=== PATIENT | female | born 1995 | race Caucasian/White ===

== ENCOUNTER 2021-02-17 12:56 | Emergency (ER) | payer OTHER, SELFPAY ==
--- NOTE | 2021-02-17 13:09 | ED.FEMALEGU ---
HPI - Female Genitourinary General Chief complaint: Urogenital-Female Stated complaint: UTI complaint Time Seen by Provider: 02/17/21 13:10 Source: patient, RN notes reviewed and old records reviewed Mode of arrival: ambulatory Limitations: no limitations History of Present Illness HPI Narrative: 28-year-old female presents to the [facility] with complaints of I think I have a UTI. Patient reports burning with urination and external irritation vaginally. Patient reports that she tried applying Monistat but had some burning with it. Patient reports that for the first time in 2 years she had aggressive sex and use coconut oil to help. Has a new partner. Has a history of UTIs, yeast infections post sexual activity. Patient denies any other symptoms. No fevers. No abdominal pain. Denies chest pain or shortness of breath. MD elicited complaint: UTI Related Data Home Medications Medication Instructions Recorded Confirmed norgestimate-ethinyl estradiol 1 tablet PO DAILY 02/17/21 02/17/21 [Tri-Previfem (28)] Allergies Allergy/AdvReac Type Severity Reaction Status Date / Time red dye Allergy Mild hives Verified 10/26/20 07:29 citalopram Allergy Unknown Hives Verified 10/26/20 07:29 Review of Systems Review of Systems: All systems reviewed & are unremarkable except as noted in HPI and below Constitutional: Constitutional: Reports no additional constitutional complaints Eyes: Eyes: Reports no additional eye complaints ENT: Reports system reviewed and no additional complaints, except as documented Cardiovascular: Cardiovascular: Reports no additional cardiovascular complaints and Denies chest pain Respiratory: Respiratory: Reports no additional respiratory complaints, Denies cough and Denies dyspnea Gastrointestinal: Gastrointestinal: Reports no additional gastrointestinal complaints, Denies abdominal pain, Denies nausea and Denies vomiting Genitourinary: Genitourinary: Reports as per HPI, Reports nocturia, Denies genital lesions, Reports dysuria, Reports pelvic pain, Denies urinary incontinence and Reports vaginal discharge Musculoskeletal: Musculoskeletal: Reports no additional musculoskeletal complaints Integumentary/Breasts: Skin/Breast: Reports system reviewed and no additional complaints, except as docu Neurologic: Reports system reviewed and no additional complaints, except as documented Psychiatric: Psychiatric: Reports no additional psychiatric complaints Allergic/Immunologic: Allergic/Immunologic: Reports no additional allergic/immunologic complaints PMFSH Past Medical History Medical History Acute maxillary sinusitis Body rash Hyperlipidemia Pain in right foot Palpitations Sore throat, chronic Stress Surgical History Surgical History Hx of tonsillectomy Family History Family History Father Hypertension Family history of elevated blood lipids Mother Family history of elevated blood lipids Social History Social History Smoking status: Never smoker Second hand tobacco smoke exposure: No Alcohol intake: current Drinks per week: 1 Comments At the time of my signature, I reviewed and agree with the nursing past medical, surgical, social, and family history. There is no relevant family history pertinent to the patient complaint. Exam Const: General: healthy appearing, no acute distress and alert Nutritional Appearance: well nourished Orientation/consciousness: patient oriented x3 Limitations: no limitations HENMT: Head: normal to inspection Eyes: Conjunctivae: conjunctivae normal Pupils: Equal, round and reactive pupils present Neck: Neck: normal visual inspection, no lymphadenopathy and no meningeal signs Chest: Chest palpation & inspection: normal inspection of the ches
[2021-02-17 13:10] VITALS: BP 128/74; PULSE 81; RESP 18; TEMP 36.8; O2SAT 100
== END 2021-02-17 14:04 | disposition home or self-care (01) ==
PROVIDERS: Emergency Provider Nurse Practitioner; PCP Internal Medicine
DX: N76.0 Acute vaginitis (principal); B37.3 Candidiasis of vulva and vagina; N39.0 Urinary tract infection, site not specified; E78.5 Hyperlipidemia, unspecified
CPT/HCPCS: 81003; 87070; 87086; 87491; 87591; 87661; 99214; G0463

== ENCOUNTER 2022-07-20 17:38 | Emergency (ER) | payer OTHER, SELFPAY ==
--- NOTE | 2022-07-20 17:49 | ED.GENADULT ---
HPI - General Adult General Chief complaint: Animal Bite Stated complaint: dog bite Time Seen by Provider: 07/20/22 17:49 Source: patient Mode of arrival: ambulatory Limitations: no limitations History of Present Illness HPI narrative: 26-year-old female patient presents to the [facility] with complaints of a dog bite to the left index finger. Patient states she has the old dog at home that was having wheezing issues the night before and she went to go give him his medicine in his mouth and he accidentally bit her left index finger. Patient states her last tetanus shot was in 2015. Patient states she did try and wash the finger and area with soap water but noticed that it appeared that it might be getting infected. Denies any pain to the area at this time. Denies fevers, body aches or chills. Related Data Home Medications Medication Instructions Recorded Confirmed norgestimate-ethinyl estradiol 1 tablet PO DAILY 02/17/21 07/20/22 0.18 mg/0.215mg/0.25mg-35 mcg(28)tablet (Tri-Previfem (28)) Allergies Allergy/AdvReac Type Severity Reaction Status Date / Time red dye Allergy Mild hives Verified 07/20/22 18:06 citalopram Allergy Unknown Hives Verified 07/20/22 18:06 Review of Systems Review of Systems: CONSTITUTIONAL: Denies fever, chills, or sweats. EYES: Denies visual changes, redness, or discharge. ENT: Denies rhinorrhea, congestion, sore throat, or otalgia. CARDIOVASCULAR: Denies chest pain, palpitations, or edema. RESPIRATORY: Denies cough or dyspnea. GASTROINTESTINAL: Denies abdominal pain, nausea, vomiting, or diarrhea. GENITOURINARY: Denies dysuria or hematuria. SKIN: Denies rash or itching. Positive wound to left index finger MUSCULOSKELETAL: Denies back pain, joint pain, or myalgia. NEUROLOGIC: Denies headache, numbness, or weakness. PSYCHIATRIC: Denies anxiety or depression. [facility] Past Medical History Medical History Acute maxillary sinusitis Body rash Hyperlipidemia Pain in right foot Palpitations Sore throat, chronic Stress Surgical History Surgical History Hx of tonsillectomy Family History Family History Father Hypertension Family history of elevated blood lipids Mother Family history of elevated blood lipids Breast cancer Social History Social History Smoking status: Never smoker Second hand tobacco smoke exposure: No Alcohol intake: current Drinks per week: 1 Substance use: never Comments At the time of my signature I agree with nursing past medical history, surgical, social, and family history. There is no relevant family history pertinent to the presenting complaint. Exam Narrative: GENERAL: Well-appearing, well-nourished, and in no acute distress. HEAD: Normocephalic, atraumatic. EYES: PERRLA and EOMI. ENT: Nares clear, no rhinorrhea or epistaxis. Mucous membranes moist. NECK: Supple. No lymphadenopathy CHEST: Clear to auscultation. No respiratory distress. HEART: Regular rate and rhythm. No murmur heard. Normal peripheral pulses. ABDOMEN: Soft, nontender, nondistended, normal active bowel sounds. EXTREMITIES: Normal range of motion. No edema. SKIN: Warm, dry, no rash. patient has some broken skin to the area of the cuticle on the left index finger. There is some surrounding erythema and what appears to be some green pus underneath the skin. There is an open wound area that appears to be draining. The entire wound measuring about 0.5 cm NEURO: No focal deficits. Alert and oriented x3. Course Course Level of Care: Express Care Visit Vital Signs Vital signs: Vital Signs Temperature 36.2 C L 07/20/22 18:08 Pulse Rate 107 H 07/20/22 18:08 Respiratory Rate 18 07/20/22 18:08 Blood Pressure 129/75 07/20/22 18:08 Pulse Oxim
[2022-07-20 18:08] VITALS: BP 129/75; PULSE 107; RESP 18; TEMP 36.2; O2SAT 100
[2022-07-20] MEDS: TETANUS,DIPHTHERIA,AC PERTUSSIS ADULT (0.5 ML) BOOSTRIX IM (18:32)
== END 2022-07-20 18:53 | disposition home or self-care (01) ==
PROVIDERS: Emergency Provider Nurse Practitioner Family; PCP Internal Medicine
DX: S61.251A Open bite of left index finger without damage to nail, initial encounter (principal); L08.9 Local infection of the skin and subcutaneous tissue, unspecified; Z23 Encounter for immunization; W55.21XA Bitten by cow, initial encounter
CPT/HCPCS: 90471; 90715; 99213; G0463

== ENCOUNTER 2025-01-22 18:12 | Emergency (ER) | payer OTHER, SELFPAY ==
--- OUTSIDE RECORDS SUMMARY | 2017-05-20 08:58 | XMS_ITS | Continuity of Care Document ---
Author Organization [facility] Address [address] [place] [address] Phone Care Team Providers Care Ethnic Origins Teacher Name Role Phone Unavailable Unavailable Unavailable Allergies, Adverse Reactions, Alerts Substance Reaction Status Criticality red dye Active No Information Medications Medication Instructions Dosage Effective Dates (start - stop) Status Comments ondansetron 4 mg disintegrating tablet take 1 tablet by oral route every [address] on top of the tongue where they will dissolve, then swallow - Active benzonatate 200 mg capsule take 1 capsule by oral route 3 times every day as needed for cough 200 MG - Active TriNessa (28) 0.18 mg(7)/0.215 mg(7)/0.25 mg(7)-35 mcg tablet take 1 tablet by oral route every day - Active ondansetron HCl 4 mg tablet take 1 tablet by oral route 2 times every day 4 MG - No Longer Active Procedures Procedure Date Ondansetron (Zofran) Oral 4mg 8 Flu Rapid Immunoas; Flu Rapid Immunoas; Offic/outpt E&m Estab Mod-hi 2 18 Service(s) provided in the office during regularly Services provided in an urgent care cent er Offic/outpt E&m Estab Mod-hi 2 17 Services provided in an urgent care cent er Flu Rapid Immunoas; Flu Rapid Immunoas; Ua Dip Stik/tablet; Wo Micro A 16 Handl/convey Specmn-offic To L 16 Offic/outpt E&m Estab Mod-al 2 16 Service(s) provided in the office during regularly Services provided in an urgent care cent er Agt-immunassay Dir Obs; Strep 6 Agt-immunassay Dir Obs; Strep 6 Offic/outpt E&m New Mod Sever 6 Services provided in an urgent care [facility] er Advance Directives Directive Yes / No Effective Date File Name No Information Encounters Encounter Description Practice Location Reason(s) For Visit Diagnoses Date Provider Providers Copied on Encounter [facility], [address], [place], [place], [id number], [place] tel:[phone] [facility] [place] No Information 8 No Information Offic/outpt E&m Estab [facility] 2 [facility], [address], [place], [place], [id number], tel:[phone] [facility] [place] diarrhea (chief complaint)n chay congestion (chief complaint) Vomiting and diarrheaDiarr hea, unspecifiedDi arrhea, unspecified 8 No Information Offic/outpt E&m [facility] 2 [facility], [address], [place], [place], [id number], [place] tel:[phone] [facility] [place] cough (chief complaint)f ever (chief complaint)s inus symptoms (chief complaint)v omiting (chief complaint) Acute upper respiratory infectionAcut e sinusitis, unspecifiedVi ral syndrome 7 No Information Offic/outpt E&m Estab [facility], [address], [place], [place], [id number], [place] tel:[phone] [facility] [place] vaginal itching (chief complaint)s ore throat (chief complaint) Acute pharyngitis, unspecified etiologyDysur iaAcute vaginitisUrin brittany tract infection, site unspecified 6 No Information Offic/outpt E&m [facility], [address], [place], [place], [id number], [place] tel:[phone] [facility] [place] sore throat (chief complaint) Acute pharyngitis, unspecified No Information Family History Family Member Type Diagnosis Age At Onset No Information Payers Payer name Insurance type Covered constitution party ID Guy cervanteszaheer(s) [employer] P[place] [id number] Social History Type Description Quantity Date Captured Comments Sex Female Smoking Status No Information Chief Complaint And Reason For Visit No Information Reason For Referral Reason For Referral No Information History Of Present Illness Encounter Date Complaint History Of Prese nt Illness No Information Functional Status Date Functional Assessmen t No Information Instructions Date Instruction Additional Infor mation No Information Assessments Type Assessment Date No Information Patient Care Teams Name Effective Dates (start - stop) Status Members No Information
--- OUTSIDE RECORDS SUMMARY | 2017-05-20 08:58 | XMS_ITS | Continuity of Care Document ---
Author Organization [facility] Address [address] [place] [address] Phone Care Team Providers Care Corporate Communications Specialist Name Role Phone Unavailable Unavailable Unavailable Allergies, [...] Specmn-offic To L 16 Offic/outpt E&m Estab Mod-nm 2 16 Service(s) provided in the office during regularly Services provided in an urgent care cent er Agt-immunassay Dir Obs; Strep 6 Agt-immunassay Dir Obs; Strep 6 Offic/outpt E&m New Mod Sever 6 Services provided in an urgent care [facility] er Advance Directives Directive Yes / No Effective Date File Name No Information Encounters Encounter Description Practice Location Reason(s) For Visit Diagnoses Date Provider Providers Copied on Encounter [facility], [address], [place], [place], [id number], [place] tel:[phone] [facility] [place] No Information 8 No Information Offic/outpt E&m Estab [facility] 2 [facility], [address], [place], [place], [id number], tel:[phone] [facility] [place] diarrhea (chief complaint)n chay congestion (chief complaint) Vomiting and diarrheaDiarr hea, unspecifiedDi arrhea, unspecified 8 No Information Offic/outpt E&m [facility] 2 [facility], [address], [place], [place], [id number], [place] tel:[phone] [facility] [place] cough (chief complaint)f ever (chief complaint)s inus symptoms (chief complaint)v omiting (chief complaint) Acute upper respiratory infectionAcut e sinusitis, unspecifiedVi ral syndrome 7 No Information Offic/outpt E&m Estab [facility] 2 [facility], [address], [place], [place], [id number], [place] tel:[phone] [facility] [place] vaginal itching (chief complaint)s ore throat (chief complaint) Acute pharyngitis, unspecified etiologyDysur iaAcute vaginitisUrin brittany tract infection, site unspecified 6 No Information Offic/outpt E&m [facility], [address], [place], [place], [id number], [place] tel:[phone] [facility] [place] sore throat (chief complaint) Acute pharyngitis, unspecified No Information Family History Family Member Type Diagnosis Age At Onset No Information Payers Payer name Insurance type Covered constitution party ID Guy cervanteszaheer(s) [employer] PVD CI [id number] Social History Type Description Quantity Date Captured [...]
--- NOTE | 2025-01-22 18:14 | ED.FEMALEGU ---
HPI - Female Genitourinary General Chief complaint: Urogenital-Female Stated complaint: uti Time Seen by Provider: 01/22/25 18:13 Source: patient Mode of arrival: ambulatory Limitations: no limitations History of Present Illness HPI Narrative: Patient is a 29-year-old female who presents with urination burning with urination that started yesterday morning. Denies any urgency, frequency, low back pain, fever, chills, nausea, vomiting, diarrhea. Has no concern for STD. Has had UTI in the past. MD elicited complaint: dysuria Related Data Home Medications ?Medication ?Instructions ?Recorded ?Confirmed ?Last Taken ?Type multivitamin 1 tablet PO DAILY 04/24/23 01/22/25 Unknown History Allergies Allergy/AdvReac Type Severity Reaction Status Date / Time citalopram Allergy Mild Hives Verified 01/22/25 18:15 red dye Allergy Mild hives Verified 01/22/25 18:15 Review of Systems Review of Systems: All systems reviewed & are unremarkable except as noted in HPI and below Constitutional: Constitutional: Denies chills, Denies fever(s), Denies headache(s), Denies malaise and Denies weakness Eyes: Eyes: Denies change in vision, Denies eye discharge and Denies irritation ENT: Denies otalgia, Denies headache(s), Denies nasal congestion, Denies nasal discharge, Denies sinus pain and Denies sore throat Cardiovascular: Cardiovascular: Denies chest pain, Denies edema, Denies palpitations and Denies dyspnea Respiratory: Respiratory: Denies cough and Denies dyspnea Gastrointestinal: Gastrointestinal: Denies abdominal pain, Denies diarrhea, Denies nausea and Denies vomiting Genitourinary: Genitourinary: Denies hematuria, Denies nocturia, Reports dysuria, Denies flank pain and Denies urinary urgency Musculoskeletal: Musculoskeletal: Denies back pain and Denies numbness Integumentary/Breasts: Skin/Breast: Denies pruritus and Denies rash Neurologic: Denies headache(s), Denies numbness and Denies weakness Psychiatric: Psychiatric: Reports no additional psychiatric complaints Endocrine: Endocrine: Denies palpitations PMFSH Past Medical History Medical History Hyperlipidemia Acute maxillary sinusitis Sore throat, chronic Pain in right foot Body rash Stress Palpitations Surgical History Surgical History Hx of tonsillectomy Family History Family History Father Hypertension Family history of elevated blood lipids Mother Family history of elevated blood lipids Breast cancer, Onset Age: 61 BRCA negative Social History Social History Smoking status: Never smoker Second hand tobacco smoke exposure: No Alcohol intake: current Drinks per week: 1 Substance use: never Spiritual care concerns: No Comments At time of signature, agree with nursing past medical, surgical, social and family history. There is no relevant family history pertinent to the presenting complaint. Exam Const: General: cooperative, healthy appearing, comfortable, no acute distress and well nourished Nutritional Appearance: well nourished Orientation/consciousness: patient oriented x3 HENMT: Head: normocephalic and atraumatic Ears: external ears normal Face/Nose/Sinus: Normal external nose present, Normal nares present and normal facial exam Face and sinus: normal facial exam Eyes: General: appearance normal, both eyes and all related structures Pupils: Equal, round and reactive pupils present EOM: EOMs intact bilaterally Neck: Neck: normal visual inspection, full ROM and supple Chest: Chest palpation & inspection: normal inspection of the chest Resp: Effort & Inspection: normal respiratory effort and able to speak in complete sentences Cardio: Rate: regular rate Rhythm: regular rhythm GI: Inspection: normal to inspection GI Palp: No abdominal tenderness and Yes Soft to palpation : General: Yes no CVA tenderness Back/Spine/Pelvis: Back: no CVA tenderness Skin: General skin exam: normal color and no rashes or lesions noted Neuro: General: patient oriented x3 and moves all extremities Cranial nerves: Yes Equal, round and reactive pupils present Extrem: General: normal to inspection and full ROM Psych: Appearance: grossly normal and well kempt Course Course Emergency Course: Patient is aware of diagnosis, understands and agrees to treatment plan. Anticipatory guidance given. Patient agrees to follow-up as directed and is aware of reasons to seek care at the emergency department. Portions of this record may have been created with voice recognition software Level of Care: Express Care Visit Vital Signs Vital signs: Vital Signs Temperature 36.3 C L 10/04/25 18:22 Pulse Rate 74 01/22/25 18:22 Respiratory Rate 18 01/22/25 18:22 Blood Pressure 122/70 01/22/25 18:22 Pulse Oximetry 100 01/22/25 18:22 Oxygen Delivery Room Air 01/22/25 18:22 Temperature 36.3 C L 01/22/25 18:22 Pulse Rate 74 01/22/25 18:22 Respiratory Rate 18 01/22/25 18:22 Blood Pressure 122/70 01/22/25 18:22 Pulse Oximetry 100 01/22/25 18:22 Oxygen Delivery Room Air 01/22/25 18:22 Reviewed MDM - Female Genitourinary MDM Narrative Medical decision making narrative: Exam findings and UA show probable UTI; patient is non-toxic appearing and is in no distress. No CMT, adnexal tenderness, or evidence of pelvic etiology. Patient is appropriate for outpatient treatment and follow-up. Differential Diagnosis Differential diagnosis: Likely urinary tract infection, bacterial vaginosis, trichomoniasis, cervicitis, vaginitis and cystitis Medical Records Attestation: I reviewed the patient's medical records. Lab Data Attestation: I reviewed the patient's lab results. Labs: Lab Results 01/22/25 Range/Units 18:27 POC Urine Color Light/pale POC Urine Clarity Clear POC Urine pH 7.0 POC Ur Specif [place] 1.005 POC Urine Protein Negative (Negative) POC Ur Glucose (UA) Negative (Negative) POC Urine Ketones Negative (Negative) POC Urine Blood Trace (Negative) POC Urine Nitrite Negative (Negative) POC Urine Bilirubin Negative (Negative) POC Urine Urobilinogen 0.2 POC U Leukocyte Esteras Negative (Negative) Discharge Plan Discharge Clinical Impression: UTI (urinary tract infection) Qualifiers: Urinary tract infection type: acute cystitis Hematuria presence: without hematuria Qualified Code(s): N30.00 - Acute cystitis without hematuria Patient Disposition: Home Condition: Stable Instructions: Urinary Tract Infection in Women (ED) Additional Instructions: We will send a urine culture to the lab, based on your symptoms and urine dip we will start treatment today. If culture comes back and bacteria is not susceptible to antibiotic, your prescription may change. Your symptoms should improve within a day of starting antibiotics, but you should finish all the antibiotic pills you get. Otherwise your infection might come back Continue with increased water intake. Take Tylenol or ibuprofen as needed for pain or fever. Follow-up with primary care provider for urine recheck or see ER visit if condition worsens with high fever, nausea, vomiting, severe back pain Patient Language: Amharic Prescriptions: New sulfamethoxazole-trimethoprim 800-160 mg tablet 1 tablet PO Q12H 5 Days Qty: 10 0RF No Action multivitamin Tablet 1 tablet PO DAILY dextroamphetamine-amphetamine [Adderall] 20 mg tablet 20 mg PO BID Qty: 60 0RF Rx Instructions: Fill on/after 10/06. norgestimate-ethinyl estradiol [Tri-Sprintec (28)] 0.18/0.215/0.25 mg-35 mcg (28) tablet 1 tablet PO DAILY Qty: 28 0RF Follow-up/Referrals: Marie Dubois APRN [Primary Care Provider, Internal Medicine] - 3 Days Time of Disposition: 18:34
--- OUTSIDE RECORDS SUMMARY | 2025-01-22 18:15 | XMS_ITS | Clinical Summary ---
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
--- OUTSIDE RECORDS SUMMARY | 2025-01-22 18:15 | XMS_ITS | Data Portability ---
Author Organization [facility] Address [address] [place] [address] [place] [address] Care Team Providers Care Quality Control Tester Name Role Phone OSMANY FOY Primary Care Provider [phone] Assessment Encounter Date Assessment Date Assessment LastModified by Organization Details LastModified Time 01/31/2022 01/31/2022 Annual gynecological exam performed. Patient will come back in a year unless there are new symptoms. Not available 01/31/2022 17:06:08 02/04/2023 02/04/2023 Annual gynecological exam performed. Patient will come back in a year unless there are new symptoms. [email or web address] Not available 02/04/2023 12:43:38 02/09/2024 02/09/2024 Annual gynecological exam performed. Patient will come back in a year unless there are new symptoms. [email or web address] Not available 02/09/2024 15:33:40 Plan of Treatment Reminders Order Date Submit Date Provider Last Modified By Organization Details Last Modified Time Details Appointments [facility] 2024 11:45A M PATO GUAJARDO NP Not available Not available Not available Lab urinalysi s, dipstick 2024 025 [email or web address] [address], [address], [place], [address], 07/23/2024 17:32:07 pap, IG + reflex HPV if ASC-U - if positive HPV run subtyping 16,18/45 2023 024 [facility] (Lab), [address] [place], [address], 02/14/2024 21:45:45 Referral None recorded. Procedures None recorded. Surgeries None recorded. Imaging None recorded. Medication Orders Macrobid 100 mg capsule 2024 025 [facility] #[id number], [address], [place], [place], [id number], 07/23/2024 17:32:12 Tri-Sprin lizbeth (28) 0.18 mg(7)/0.2 15 mg(7)/0.2 5 mg(7)-0.0 35 mg tablet 2023 [facility] #[id number], [address], [place], [id number], 02/09/2024 15:38:37 fluconazo le 150 mg tablet 2023 024 [facility] #29086, [address], [place], [id number], 05/07/2023 12:51:35 nystatin- triamcino lone 100,000 unit/gram -0.1 % topical ointment 2023 024 [facility] #[id number], [address], [place], [place], [id number], 02/09/2024 14:54:24 Tri-Sprin lizbeth (28) 0.18 mg(7)/0.2 15 mg(7)/0.2 5 mg(7)-0.0 35 mg tablet 2022 023 [facility] #41479, [address], [place], [id number], 02/04/2023 12:50:43 Tri-Sprin lizbeth (28) 0.18 mg(7)/0.2 15 mg(7)/0.2 5 mg(7)-0.0 35 mg tablet 2021 022 [facility][id number], [address], [place], [place], [id number], 02/17/2022 19:58:51 Patient TargetsNo targets recorded. Patient InstructionsNo instructions recorded. Reason for Referral None Reported. Results Created Date Observation Date Name Description Value Unit Range Abnormal Flag Note LastModifiedBy Organization Detail LastModifiedTime 02/01/20 22 01/31/2022 IMAGE GUIDE D PAP, REFLE X HPV IF ASCUS ONLY image guided Pap, reflex HPV ASCUS only SEE RESULT S BELOW CASE REPOR T: Cytol ogy Gynec ologi tamika Repor t Case: [id number] Autho j luis mariee Provi marifer: Dm Bazan Colle cted: 01/31 1725 AS400 CONSULTANT Order ing Locat ion: [place] Patho log[facility] Recei garry: 02/01 0904 First Scree n: Anne-Marie Dickinson Rescr een: Suri collins, Jennifer sharma, CT Speci men: Scree moi Pap - Image d, Cervi x STATE MENT OF ADEQU ACY: Satis facto ry for evalu ation Trans forma tion zone compo nent prese nt FINAL DIAGN OSIS: Negat brianne for Intra epith elial Lesio n or Henry escamilla (NIL) . Elect gladis cook d by Jennifer Minaya, CT on 02/06 at 9:46 PM ----- ----- ----- ----- ----- ----- ----- ----- ----- ----- ----- ----- ----- ----- ----- ----- ----- ---- COMME NT: Note: This speci men was revie wed by a Cytot echno logis t and/o r Patho logis t (as indic ated in this repor t) after evalu ation using the Thinp rep Imagi ng Syste m. CLINI TAMIKA INFOR MATIO N: Menst rual Statu s: LMP (if appli cable ): Clini tamika Histo ry/Pr eviou s Pap: Type of Neopl pricilla (if appli cable ): Signi fican t Clini tamika Findi ngs: Other Histo ry: Hormo angi (if appli cable ): PAP EDUCA ELOY L NOTE: The Pap Test is a scree moi test with an inher ent false negat brianne rate. Liqui d-bas ed sampl ing may decre ase, but will not elimi mahamed, false negat brianne resul ts. A negat brianne resul t does not precl ude the prese nce and/o r devel opmen t of disea se, since the prese nce of abnor mal cells in the sampl e depen ds on the locat ion of the lesio n and sampl ing techn ique. Vladimir nued regul ar scree moi is the best metho d of cance r preve ntion . If repor hzael cytol ogic findi ng do not corre late with physi tamika and/o r histo rical findi ngs, furth er inves tigat ion is recom glenda d, as clini kaykay santana nted. Not Available [facility] [address] [place], [address], 02/06/2022 22:49:02 07/24/19 25 07/23/2024 CULTU RE: URINE result report SEE RESULT S BELOW abnormal Test: Cultu re: Urine Speci men Sourc e: Urine - Clean Catch Speci men Type: Urine Speci men Date: 025 1630 Resul t Date: 0747 Resul t Statu s: Final resul t Abnor mal: Yes Resul ting Lab: [facility] [address] [facility] [facility] [address] Tel: CULTU RE ----- ----- ----- --- 50,00 0-75, 000 CFU/m l Esche deborah a coli (Abno rmal) SUSCE PTIBI LITY ----- ----- ----- --- Esche deborah a coli METHO D ARNIE ----- ----- ----- ----- ----- ---- ----- ----- ----- ----- ----- AMPIC ILLIN <=8 ug/mL Susce ptibl e AMPIC ILLIN /SULB ACTAM <=4 ug/mL Susce ptibl e AZTRE ONAM <=4 ug/mL Susce ptibl e CEFAZ YANA <=2 ug/mL Susce ptibl e CEFEP JAYANT <=2 ug/mL Susce ptibl e CEFTA ZIDIM E <=1 ug/mL Susce ptibl e CEFTR IAXON E <=1 ug/mL Susce ptibl e CIPRO FLOXA RADHA <=0.2 5 ug/mL Susce ptibl e GENTA MICIN <=2 ug/mL Susce ptibl e LEVOF LOXAC IN <=0.5 ug/mL Susce ptibl e MEROP ENEM <=1 ug/mL Susce ptibl e NITRO FURAN TOIN <=32 ug/mL Susce ptibl e PIPER ACILL IN/TA ZOBAC LLANOS <=8 ug/mL Susce ptibl e TOBRA MYCIN <=2 ug/mL Susce ptibl e TRIME THOPR IM/GRAHAM LFAME THOXA ZOLE <=0.5 ug/mL Susce ptibl e Not Available [facility] (Lab) [address], [place], [address], 07/26/2024 08:49:36 Result Notes None recorded. Problems Name Problem SNOMED Code Status Onset Date Resolution Date Notes Provider Name and Address Organization Details Recorded Time SNOMED CT Concept Completed 201505/01/2020 Encntr for routine child health exam w/o abnormal findings ;Recorde d Elsewher e: No Locat ion: Ana vanessa [facility] S ource: EHR [employer]er chanell: N Ulyssesti ce ID: [id number] Norm lable Time: 11:15:00 AM MD [address], [place], [address], [facility] 14:46:49 Worried well [id number] Completed 201505/01/2020 Worried well;Rec orded Elsewher e: No Locat ion: Ana [facility] S ource: EHR [employer] Designer chanell: N Ulyssesti ce ID: [id number] Norm lable Time: 02:00:00 PM Deann Bray MD [address], [place], [address], [facility] 14:46:58 Acute vaginiti s [id number] Completed 201601/03/2021 Vaginiti s;Record ed Elsewher e: No Locat ion: [facility] S ource: EHR [employer] Designer chanell: N Ulyssesti ce ID: 0001 Norm lable Time: 11:15:00 AM [facility] 12:36:[address] Concept Completed 201605/01/2020 Encntr for general adult medical exam w/o abnormal findings ;Recorde d Elsewher e: No [facility]: EHR [employer] Designer chanell: N Ulyssesti ce ID: 0001 Norm lable Time: 11:00:00 AM MD [address], [place], [address], [facility] 14:46:[address] Concept Completed 201705/01/2020 Encntr for registered nurse maternity exam (general ) (routine ) w/o abn findings ;Recorde d Elsewher e: No Locat ion: Ana [facility] S ource: EHR [employer] Designer chanell: N Ulyssesti ce ID: 0001 Norm lable Time: 11:00:00 AM MD [address], [place], [address], [facility] 14:46:53 Carbuncl rasheeda [id number] Completed 201805/01/2020 Carbuncl e, unspecif ied;Александр rded Elsewher e: No Locat ion: nAa vanessa [facility] S ource: EHR [employer] Designer chanell: N Ulyssesti ce ID: 0001 Norm lable Time: 01:00:00 PM Deann Bray MD [address], [place], [address], [facility] 14:46:[address] Concept Completed 201805/01/2020 Encntr for registered nurse maternity exam (general ) (routine ) w abnormal findings ;Recorde d Elsewher e: No [facility]at [facility]: [facility] S ource: EHR [employer] Designer chanell: N Olga ce ID: [id number] Norm lable Time: 02:15:00 PM Deann Bray MD [address], [place], [address], [facility] 14:46:51 Exposure to sexually transmis sible disorder Completed 201805/01/2020 Contact w and exposure to infect w a sexl mode of transmis s;Record ed Elsewher e: No Locat ion: Ana vanessa [facility] S ource: EHR [employer] Designer chanell: N Olga ce ID: 0001 Norm lable Time: 02:15:00 PM Deann Bray MD [address], [place], [address], [facility] 14:46:44 Syphilis test finding [id number] Completed 201805/01/2020 Encounte r for STD screenin g;Record ed Elsewher e: No Locat ion: Ana vanessa [facility] S ource: EHR [employer] Designer chanell: N Olga ce ID: 0001 Norm lable Time: 02:15:[address] MD [address], [place], [address], [place] [facility] 1 14:46:55 Problem Notes None recorded. Procedures Surgical History Date Name Laterality Status Provider Name and Address Organization Details Recorded Time 02/05/20 23 Date of Last Pap Smear completed Jo Sophia [facility] 02/09/2024 10:40:18 Tonsillectomy completed Cassidy Dio [facility] 12/08/2019 15:29:54 Imaging Results None recorded. Procedure Notes None recorded. Medical Equipment None Reported. Allergies Allergen ID Allergen Name Allergen Category Reaction Reaction Severity Criticality Documentation Date Start Date Code Code System Note Provider Name and Address Organization Details Recorded Time 176 citalopra m medicatio n hives Not available Not available 12/08/2019 2556 RxNorm Cassidy Wharton [facility], [facility] 0 15:27:43 Medications Name Sig Start Date Stop Date Status Note LastModified by Organization Details LastModified Time cefuroxim e axetil 250 mg tablet TK 1 T PO Q 12 H 05/01 completed Not Available Not Available Not Available triamcino lone acetonide 0.5 % topical cream APPLY TOPICALL Y TO THE AFFECTED AREA TWICE DAILY 02/08 completed Not Available Not Available Not Available fluconazo le 150 mg tablet TAKE 1 TABLET BY MOUTH NOW. REPEAT IN 72 HOURS NEEDED 02/08 completed Not Available Not Available Not Available benzonata te 200 mg capsule TK 1 C PO TID PRF COUGH 05/01 completed Not Available Not Available Not Available minocycli ne 100 mg capsule take 1 capsule by oral route every 12 hours 03/11 completed Prescrib ed Elsewher e: Yes Loca tion: Ana vanessa [facility] odify By: tamera muller DateTime : 10/31/19 16 11:15:00 AM Not Available Not Available Not Available Adderall 5 mg tablet take 1 tablet by oral route 2 times every day before breakfas t and at noon 01/03 completed Prescrib ed Elsewher e: Yes Loca tion: Ana vanessa [facility] odify By: cat brian DateTime : 11/24/19 19 01:00:00 PM Not Available Not Available Not Available ondansetr on HCl 4 mg tablet TK 1 T PO Q 8 H 05/01 completed Not Available Not Available Not Available metronida zole 500 mg tablet TAKE 1 TABLET BY MOUTH EVERY 12 HOURS 02/04 completed Not Available Not Available Not Available sulfameth oxazole 800 mg-trimet hoprim 160 mg tablet TAKE 1 TABLET BY MOUTH EVERY 12 HOURS 01/31 completed Not Available Not Available Not Available nystatin- triamcino lone 100,000 unit/gram -0.1 % topical ointment APPLY TOPICALL Y TO THE AFFECTED AREA TWICE DAILY FOR 5 DAYS 02/08 completed Not Available Not Available Not Available dextroamp hetamine- amphetami ne 20 mg tablet TAKE 1 TABLET BY MOUTH TWICE DAILY active Not Available Not Available No t Available mupirocin 2 % topical ointment APPLY TOPICALL Y TO THE AFFECTED AREA TWICE DAILY 02/04 completed Not Available Not Available Not Available methylpre dnisolone 4 mg tablets in a dose pack FOLLOW PACKAGE DIRECTIO NS 02/08 completed Not Available Not Available Not Available hydroxyzi ne HCl 10 mg tablet TAKE 1 TABLET BY MOUTH TWICE DAILY NEEDED active Not Available Not Available No t Available amoxicill in 875 mg-potass ium clavulana te 125 mg tablet TAKE 1 TABLET BY MOUTH EVERY 12 HOURS FOR 7 DAYS 02/04 completed Not Available Not Available Not Available Tri-Sprin lizbeth (28) 0.18 mg(7)/0.2 15 mg(7)/0.2 5 mg(7)-0.0 35 mg tablet TAKE 1 TABLET BY MOUTH EVERY DAY 2024 active Not Available Not Available Not Avai lable nitrofura ntoin monohydra te/macroc rystals 100 mg capsule TAKE 1 CAPSULE BY MOUTH EVERY 12 HOURS FOR 7 DAYS active Not Available Not Available No t Available Adderall (20mg) 01/31 completed Not Available Not Available Not Available multivita min active Not Available Not Available Not Available Adderall 05/01 completed Not Available Not Available Not Available Tri-Sprin lizbeth (28) 05/01 completed Not Available Not Available Not Available clindamyc in 1.2 % (1 % base)-tramaine zoyl peroxide 5 % topical gel APPLY TOPICALL Y TO ACNE AREA DAILY FOR FLARES active Not Available Not Available No t Available adapalene 0.3 % topical gel with pump JUAN JOSE EXT TO FACE QD IN THE MORNING 05/01 completed Not Available Not Available Not Available Flowflex COVID-19 Antigen Home Test kit 01/31 completed Not Available Not Available Not Available Vitals Date Recorded Body height Body mass index (BMI) Body weight Systolic And Diastolic Provider Name and Address Organization Details Last Updated DateTime 05/07/2023 162.56 cm 20.1 kg/m2 14755.31 g 122/77 mm[Hg] Do Rojas [facility] 05/07/2023 12:35:23 Date Recorded Body height Body mass index (BMI) Body weight Systolic And Diastolic Provider Name and Address Organization Details Last Updated DateTime 07/23/2024 162.56 cm 20.6 kg/m2 35522.08 g 122/76 mm[Hg] Bren [facility] 07/23/2024 17:29:41 Date Recorded Body height Body mass index (BMI) Body weight Systolic And Diastolic Provider Name and Address Organization Details Last Updated DateTime 01/31/2022 162.56 cm 20.3 kg/m2 88874.9 g 120/70 mm[Hg] Kathy Casper [facility] 01/31/2022 17:06:38 Date Recorded Body height Body mass index (BMI) Body weight Systolic And Diastolic Provider Name and Address Organization Details Last Updated DateTime 02/04/2023 162.56 cm 20.3 kg/m2 08585.9 g 107/70 mm[Hg] Bren [facility] 02/04/2023 12:44:17 Date Recorded Body height Body mass index (BMI) Body weight Systolic And Diastolic Provider Name and Address Organization Details Last Updated DateTime 02/09/2024 162.56 cm 20.2 kg/m2 55569.18 g 127/75 mm[Hg] Jo Cortes [facility] 02/09/2024 14:53:00 Social History Question Answer Notes LastModified by Organizat ion Details LastModified Time Tobacco Smoking Status Never Smoker Kathy Casper [facility] 01/31/2022 17:06:53 Do You Have An Advance Directive? No Information n ot available 01/04/2021 How Many Years Have You Consumed Alcohol? 3 Information not available 01/31/2022 Are You Blind Or Do You Have Difficulty Seeing? No Information n ot available 01/04/2021 What Is Your Level Of Caffeine Consumption? Moderate Information not available 01/04/2021 How Much Tobacco Do You Chew? None Information not available 01/04/2021 In The 14 Days Before Symptom Onset, Have You Had Close Contact With A Laboratory-confirm ed COVID-19 While That Case Was Ill? No Information n ot available 01/04/2021 In The 14 Days Before Symptom Onset, Have You Had Close Contact With A Person Who Is Under Investigation For COVID-19 While That Person Was Ill? No Information not available 01/04/2021 Have You Been To An Area Known To Be High Risk For COVID-19? No Information not available 01/04/2021 Are You Deaf Or Do You Have Serious Difficulty Hearing? No Information not available 01/04/2021 What Type Of Diet Are You Following? CARDIAC Information n ot available 01/31/2022 What Is The Highest Grade Or Level Of School You Have Completed Or The Highest Degree You Have Received? [id number] Information not available 01/04/2021 Are There Any Guns Present In Your Home? No Information not available 01/04/2021 Do You Use Protection During Sex? Always Information not available 01/04/2021 Do You Use Your Seat Belt Or Car Seat Routinely? Yes Information not available 01/04/2021 Do You Have Smoke And Carbon Monoxide Detectors In Your Home? Yes Information not available 01/04/2021 How Much Tobacco Do You Smoke? No Information not available 01/04/2021 Do You Use Sunscreen Routinely? Yes Information not available 01/04/2021 Have You Used IV Drugs? No Information not available 01/04/2021 Do You Have Difficulty Walking Or Climbing Stairs? No Information not available 01/31/2022 Sex: Unknown Functional Status Question Answer Note LastModified by Organizat ion Details LastModified Time Do you use any illicit or recreational drugs? No Information not available 01/04/2021 What is your level of alcohol consumption? Occasional Information not available 01/04/2021 Are you able to walk independently without assistance or assistive devices? YESWOREST Information not available 01/04/2021 Are you able to care for yourself independently? 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 No Information not available 01/31/2022 What is your exercise level? Occasional Information not available 01/31/2022 Mental Status Question Answer Note LastModified by Organization D etails LastModified Time Do you feel stressed (tense, restless, nervous, or anxious, or unable to sleep at night)? [id number] Information not available 01/04/2021 Family History Relationship Description Onset Age of this Age Resolved Age Notes LastModified by Organization Details LastModified Time Mother Infertile [email or web address] Not availab le 02/09/2024 14:53:06 Mother Cyst of ovary [email or web address] Not available 2023 14:53:06 Mother Uterine prolapse Not available 2023 14:53:06 Mother High risk Not available 2020 13:38:04 Mother Tongue carcinoma [email or web address] Not available 2023 14:53:06 Mother Malignant neoplasm of breast 61 Not available 2023 14:53:06 Father Hyperlipidem ia [email or web address] Not available 2023 14:53:06 Father Hypertensive disorder [email or web address] Not available 2019 15:29:14 Paternal Grandmother Hyperlipidem ia [email or web address] Not available 2023 14:53:06 Paternal Grandmother Hypertensive disorder [email or web address] Not available 2019 15:29:14 Paternal Grandmother Carcinoma in situ of breast Not available 2023 14:53:06 Maternal Aunt Carcinoma in situ of colon Not available 2023 14:53:06 Medical History Condition Response Other N Blood Transfusion N Dermatologic Disorders N Gestational Diabetes N Anxiety Disorder N Autoimmune disease N Arthritis N Polyps N Infertility N Acid Reflux (GERD) N Cancer N Varicosities N Stroke N Neurologic/Epilepsy N Fibromyalgia N Headaches N Kidney Disease N Heart Problems N Kidney or Bladder Problems N Eating Disorder N Art (IVF or FET) N Hepatitis/Liver Disease N Urinary Tract Infection N Asthma N Trauma/Violence N Thrombophilias N Allergies (Food, seasonal, environmental ) N Breast Cancer N Drug/Latex Allergies/Reactions N Lung Disease N Defects or Inherited Disease N Breast Problem N Hematologic disorders N Anesthesia Complications N History of STI N Deep Vein Thrombosis N Polycystic ovary syndrome N History of abnormal pap N Endometriosis N High Cholesterol N Thyroid Problems N GI Problems N Anemia N Psychiatric Illness N Ovarian Cancer N Diabetes N Pulmonary (TB, Asthma) N Eczema N Abuse/Domestic Violence N Depression/ depression N Heart Disease N Pre-Eclampsia N Hypertension N Osteoporosis N Gynecological History Statement/Question Response Abnormal Pap N Flow Light Date of LMP 01/20/2024 N On BCP's at Conception? N STIs/STDs N Was last menstrual period normal Y HPV Vaccine Y Duration of Flow (days) 4 Current Control Method BCPs Date of control 12/03/2014 Are cycles usually normal Y Frequency of Cycle (Q days) 28 Sexually Active? N BCPs Menses Monthly Y Age of first menstrual cycle 13 Date of Last Pap Smear 02/04/2023 Sexual Problems? N LMP Approximate Desired Control Method BCPs N Obstetrics History GPAL:G 0 P 0 0 0 0 Past Encounters Encounter ID Performer Location Encounter Start Date Encounter Closed Date Diagnosis/Indication Diagnosis SNOMED-CT Code Diagnosis ICD10 Code Diagnosis IMO Codes Diagnosis Note [id number] JAMIE [facility] [address] [address] 12/09/2019 10:29:11 12/09/2019 11:09:02 Gynecologic examination [id number] Z01.419 Take Calcium with Vitamin D 1200mg daily if not receiving in daily diet. It is strongly advised to have an annual flu shot and up can obtain at most pharmacies . If you have not had a TDap shot in the last 10 years you should obtain one as well. Discussed with patient & provided with informatio n regarding Gardisil vaccine to prevent the 4 strains for HPV that cause cervical cancer if under age 26. Encourage safe sexual practices, to use condoms and limit partners if not already in a monogamous relationsh ip. Do monthly self breast exams. Have mammogram yearly or every other year depending on family history. BRCA testing is now available for patients with strong genetic history of female cancer. If interested contact the office. Engage in daily exercise of low impact aerobic exercise 45-60 minutes 4-5 times weekly. Avoid tobacco and illicit drugs as well as using moderation with alcohol intake less than 1-2 8 oz beverages daily. This lifestyle behavior pattern will lead to less health conditions and longer life span. If BMI greater than 25 weight watchers or dietary consult advised. Patient received above instructio ns, and questions have been answered. If you have any questions please call or respond to this email. Patient was made aware of the patient portal and may obtain a paper copy of today's plan if desired. Normal pap hx. Last pap 02/2019 neg Deferred pap per asccp unless otherwise indicated per asccp. STD screen sent. [facility] care management [id number] Z30.9 Happy on OCP RF sent x 1yr [id number] Deann Bray MD [facility] [address],[facility] [place] [address] 05/01/2020 14:37:54 05/01/2020 15:14:04 Candidiasis of vagina [id number] B37.3 [id number] [facility] [address] [address] 01/04/2021 13:24:09 01/04/2021 14:29:45 Gynecologic examination [id number] Z01.419 Take Calcium with Vitamin D 1200mg daily if not receiving in daily diet. It is strongly advised to have an annual flu shot and up can obtain at most pharmacies . If you have not had a TDap shot in the last 10 years you should obtain one as well. Discussed with patient & provided with informatio n regarding Gardisil vaccine to prevent the 4 strains for HPV that cause cervical cancer if under age 26. Encourage safe sexual practices, to use condoms and limit partners if not already in a monogamous relationsh ip. Do monthly self breast exams. Have mammogram yearly or every other year depending on family history. BRCA testing is now available for patients with strong genetic history of female cancer. If interested contact the office. Engage in daily exercise of low impact aerobic exercise 45-60 minutes 4-5 times weekly. Avoid tobacco and illicit drugs as well as using moderation with alcohol intake less than 1-2 8 oz beverages daily. This lifestyle behavior pattern will lead to less health conditions and longer life span. If BMI greater than 25 weight watchers or dietary consult advised. Patient received above instructio ns, and questions have been answered. If you have any questions please call or respond to this email. Patient was made aware of the patient portal and may obtain a paper copy of today's plan if desired. Normal pap hx. Last pap 02/2019 neg Deferred pap per asccp unless otherwise indicated per asccp 2021. STD screen declined. Adult heal th examination [id number] Z00.00 Will update her on all her lab workOn a low fat diet for higher TG's but her weight is 12#'s down from last year; and she is very thin; also on adderall which effects her appetite. She see's a counselor for ADD. Will give recommenda tions after we get labs backShe has eaten breakfast but we will still pursue lipid panel today to give us an idea of her levels. [facility] ion care management [id number] Z30.9 Happy on OCP RF sent x 1yr [id number] Leonela Smith , [facility] [address] [address] 01/31/2022 16:53:36 02/01/2022 16:20:41 Gynecologic examination [id number] Z01.419 Take Calcium with Vitamin D 1200mg daily if not receiving in daily diet. It is strongly advised to have an annual flu shot and up can obtain at most pharmacies . If you have not had a TDap shot in the last 10 years you should obtain one as well. Discussed with patient & provided with informatio n regarding Gardisil vaccine to prevent the 4 strains for HPV that cause cervical cancer if under age 26. Encourage safe sexual practices, to use condoms and limit partners if not already in a monogamous relationsh ip. Do monthly self breast exams. Have mammogram yearly or every other year depending on family history. BRCA testing is now available for patients with strong genetic history of female cancer. If interested contact the office. Engage in daily exercise of low impact aerobic exercise 45-60 minutes 4-5 times weekly. Avoid tobacco and illicit drugs as well as using moderation with alcohol intake less than 1-2 8 oz beverages daily. This lifestyle behavior pattern will lead to less health conditions and longer life span. If BMI greater than 25 weight watchers or dietary consult advised. Patient received above instructio ns, and questions have been answered. If you have any questions please call or respond to this email. Patient was made aware of the patient portal and may obtain a paper copy of today's plan if desired. Pap sentSTD Screen sentGeneti c Screen discussedC olon Screen naDexa Screen naRoutine Labs orderedMam mo na Contracept ion care management [id number] Z30.9 Happy on OCP RF sent x 1yr [id number] Leonela Smith , [facility] [address] [address] 02/04/2023 12:38:50 02/04/2023 12:56:44 Gynecologic examination [id number] Z01.419 Take Calcium with Vitamin D 1200mg daily if not receiving in daily diet. It is strongly advised to have an annual flu shot and up can obtain at most pharmacies . If you have not had a TDap shot in the last 10 years you should obtain one as well. Discussed with patient & provided with informatio n regarding Gardisil vaccine to prevent the 4 strains for HPV that cause cervical cancer if under age 26. Encourage safe sexual practices, to use condoms and limit partners if not already in a monogamous relationsh ip. Do monthly self breast exams. Have mammogram yearly or every other year depending on family history. BRCA testing is now available for patients with strong genetic history of female cancer. If interested contact the office. Engage in daily exercise of low impact aerobic exercise 45-60 minutes 4-5 times weekly. Avoid tobacco and illicit drugs as well as using moderation with alcohol intake less than 1-2 8 oz beverages daily. This lifestyle behavior pattern will lead to less health conditions and longer life span. If BMI greater than 25 weight watchers or dietary consult advised. Patient received above instructio ns, and questions have been answered. If you have any questions please call or respond to this email. Patient was made aware of the patient portal and may obtain a paper copy of today's plan if desired. Pap sentSTD Screen declinedGe netic Screen discussed & will consider.C olon Screen naDexa Screen naRoutine Labs PCPMunir altamirano --mom diagnosed breast cancer mid-50's so consider starting breast screening earlier. Contracept ion care management [id number] Z30.9 Happy on OCP RF sent x 1yr [id number] JAMIE Harvey [facility] [address],[facility] [place] [address] 05/07/2023 12:00:22 05/07/2023 13:58:09 Vaginitis [id number] N76.0 vaginitis panel sentSTI testing declinedsu spect yeast, rx sent - r/b/a reviewedvu lvar care guidelines discussed Time spent in visit is a total of 18 mins with at least 50% of visit consisting of counseling and review of plan of care. Vulval irritation [id number] 003 N90.89 [id number] Rajan Cisse MD [facility] [address],[facility] [place] [address] 02/09/2024 14:46:38 02/09/2024 15:44:18 Gynecologic examination [id number] Z01.419 Annual gynecologi tamika exam performed. Patient will come back in a year unless there are new symptoms. Suggest Calcium with Vitamin D if not eating in diet. Patient advised to get annual flu shot. Recommend yearly physicals and perform monthly breast exams. Genetic testing is available for patients with family history of cancer. Engage in safe sexual practices, use condoms. Encouraged to have daily exercise. Avoid tobacco and illicit drugs, moderation of alcohol. If BMI greater than 25 dietary consult advised. If you have any questions please call or email. mammogram- n/a colon cancer screening - n/a DEXA scan- n/a Pap smear- pap w/ HPV collectedU TD (2022 WN) laboratory evaluation - PCP STI testing - declined Contracept ion care management [id number] Z30.9 Rx refill sent. Risks/bene fits discussed. Patient states that she may stop BC sometime this year to evaluate cycle off hormonal control. Patient not currently sexually active. Discussed nonhormona l BC options. [id number] Rajan Cisse MD [facility] [address] [address] 07/23/2024 17:06:30 07/26/2024 07:57:43 Urinary symptoms [id number] R39.9 Health Concerns Section Related Observation LastModified by Organization Detai ls LastModified Time None Recorded Concern Status LastModified by Organization Details LastModified Time None Recorded Advance Directives Directive N: Payers Insurance Date Sequence Insurance Name Policy Number Policy Linda Covered Member ID Linda Member ID Guarantor Name 12/18/2020 1 [employer] Dale Jewell [id number] Jasmin Schottel 02/09/2024 1 [employer] - DOS PRIOR TO 20 - [facility] BENEFITS PLAN [id number] Jasminsa Jewell [id number] Jasmin Schottel 07/23/2024 1 [employer] [id number] Jasmin Schottel [id number] Jasmin Schottel 07/23/2024 1 [id number] Jasmin Schottel [id number] Jasmin Schottel 02/03/2023 1 [facility] [id number] Lorin Best [id number] Jasmin Schottel Notes Date Note Type Note Provider Name and Address Organization Details Recorded Time 2 text/html Annual GYNReported by PatientHistoryFor history, patient reportsno gynecologic complaints.Genitourinary symptomsFor menstrual cycle, patient reportsnormal menses. For urinary symptoms, patient reportsno hematuriaandno incontinence. For vulva, patient reportsno genital lesion. For vagina, patient reportsnormal vaginal discharge.Breast symptomsFor breast, patient reportsno breast pain,no breast lump, andno nipple discharge.ContraceptionFo r current contraception, patient reportssatisfied with current contraceptionandoral contraceptives.Endocrine symptomsFor sexual complaints, patient reportsno sexual complaints,no pain during intercourse, andnormal libido. For menopausal symptoms, patient reportsno menopausal symptomsandnormal vaginal lubrication.Psychological symptomsFor psychological symptoms, patient reportsno depression,no anxiety, andno pmdd.Preventative measuresFor preventive measures, patient reportsencourage self breast examination,encourage regular exercise,encourage no tobacco use,encourage regular mammograms starting age 40, andfollowed with yearly pap smears. JAMIE Harris- [address], [place], [address], [facility] 02/17/2022 20:00:31 3 text/html Annual GYNReported by PatientHistoryFor history, patient reportsno gynecologic complaints.Genitourinary symptomsFor menstrual cycle, patient reportsnormal menses. For urinary symptoms, patient reportsno hematuriaandno incontinence. For vulva, patient reportsno genital lesion. For vagina, patient reportsnormal vaginal discharge.Breast symptomsFor breast, patient reportsno breast pain,no breast lump, andno nipple discharge.ContraceptionFo r current contraception, patient reportssatisfied with current contraceptionandoral contraceptives.Endocrine symptomsFor sexual complaints, patient reportsno sexual complaints,no pain during intercourse, andnormal libido. For menopausal symptoms, patient reportsno menopausal symptomsandnormal vaginal lubrication.Psychological symptomsFor psychological symptoms, patient reportsno depression,no anxiety, andno pmdd.Preventative measuresFor preventive measures, patient reportsencourage self breast examination,encourage regular exercise,encourage no tobacco use,encourage regular mammograms starting age 40, andfollowed with yearly pap smears. JAMIE Harris- [address], [place], [address], [facility] 02/04/2023 12:56:38 4 text/html Vaginal/Vulvar ProblemReported by Patient 27yopresents for evaluation of vaginal discharge/itchingsymptoms started 3 days agoclumpy discharge, itchingtried OTC monistat that caused increased irritationneg pelvic painneg n/v/fneg flu-like symptomsnot currently SA - on OCPs JAMIE Harvey [address], [place], [address], [facility] 05/07/2023 13:56:27 4 text/html Annual GYNReported by PatientHistoryFor history, patient reportsno gynecologic complaints.Genitourinary symptomsFor menstrual cycle, patient reportsnormal menses. For urinary symptoms, patient reportsno hematuriaandno incontinence. For vulva, patient reportsno genital lesion. For vagina, patient reportsnormal vaginal discharge.Breast symptomsFor breast, patient reportsno breast pain,no breast lump, andno nipple discharge.ContraceptionFo r current contraception, patient reportssatisfied with current contraceptionandoral contraceptives.Endocrine symptomsFor sexual complaints, patient reportsno sexual complaints,no pain during intercourse, andnormal libido. For menopausal symptoms, patient reportsno menopausal symptomsandnormal vaginal lubrication.Psychological symptomsFor psychological symptoms, patient reportsno depression,no anxiety, andno pmdd.Preventative measuresFor preventive measures, patient reportsencourage self breast examination,encourage regular exercise,encourage no tobacco use, andencourage regular mammograms starting age 40. Patient presents for annual well woman exam. Patient denies concerns today. Patient not currently sexually active. PATO GUAJARDO NP [address], [place], [address], [place] [facility] 02/09/2024 15:40:06 OBGyn Episode No OBEpisode recorded.
[2025-01-22 18:22] VITALS: BP 122/70; PULSE 74; RESP 18; TEMP 36.3; O2SAT 100
[2025-01-22 18:31] LABS: EDUAAPPEAR Clear; EDUABILI Negative (Negative); EDUABLOOD Trace (Negative); EDUACOLOR1 Light/Pale; EDUAGLUCOSE Negative (Negative); EDUAKETONE Negative (Negative); EDUALEUKO Negative (Negative); EDUANITRATE Negative (Negative); EDUAPH 7.0; EDUAPROTEIN Negative (Negative); EDUASPGRAVITY 1.005; EDUAUROBILI 0.2
== END 2025-01-22 18:40 | disposition home or self-care (01) ==
PROVIDERS: Emergency Provider Nurse Practitioner Family; PCP Nurse Practitioner Family
DX: N30.00 Acute cystitis without hematuria (principal); E78.5 Hyperlipidemia, unspecified
CPT/HCPCS: 81003; 87086; 99213; G0463